=== PATIENT | female | born 1985 | race Caucasian/White ===

== ENCOUNTER → 2017-07-12 | Outpatient (CLI) | payer BC ==
--- NOTE | 2017-07-12 12:55 | RADIOLOGY REPORT (SQ) ---
EXAM DESCRIPTION: CHEST PA/LATERAL COMPLETED DATE/TIME: 07/12/2017 12:38 pm REASON FOR STUDY: COUGH COMPARISON: None. EXAM PARAMETERS: NUMBER OF VIEWS: two views TECHNIQUE: Digital Frontal and Lateral radiographic views of the chest acquired. RADIATION DOSE: NA LIMITATIONS: none FINDINGS: LUNGS AND PLEURA: No opacities, masses or pneumothorax. No pleural effusion. MEDIASTINUM AND HILAR STRUCTURES: No masses or contour abnormalities. HEART AND VASCULAR STRUCTURES: Heart normal size. No evidence for failure. BONES: Convex rightward thoracic scoliosis HARDWARE: None in the chest. OTHER: No other significant finding. IMPRESSION: NO SIGNIFICANT RADIOGRAPHIC FINDING IN THE CHEST. TECHNICAL DOCUMENTATION: JOB ID: [id number] [employer]- All Rights Reserved Reading location - IP/workstation name: [email or web address]
== END ==
LOC: OD 12:24
PROVIDERS: ATTEND Physician Assistant
DX: R05 Cough (principal)
CPT/HCPCS: 71046

== ENCOUNTER 2018-06-01 11:45 | Emergency (ER) | payer BC, OTHER ==
[2018-06-01 11:51] VITALS: BP 106/64
[2018-06-01] MEDS ORDERED: LIDOCAINE 5% (700 MG) TRANSDERMAL ADH..PATCH TP ONE (12:22)
[2018-06-01] MEDS ORDERED: ACETAMINOPHEN 325 MG TABLET PO ONE (12:22)
--- NOTE | 2018-06-01 12:23 | ER Document Report ---
HPI - HPI Patient complains to provider of: Back pain Time Seen by Provider: 06/01/18 12:16 Onset/Duration: Persistent Quality of pain: Achy Pain Level: 3 Context: Patient states she fell hitting her back on her foot board of her bed 2 days ago. Patient complains of continued left lower back tenderness. Patient denies any radiculopathy or paresthesia. Patient denies any urinary symptoms. Associated Symptoms: Other - Left lower back pain. denies: Fever Exacerbated by: Movement Relieved by: Denies Similar symptoms previously: No Recently seen / treated by doctor: No - ROS ROS below otherwise negative: Yes Systems Reviewed and Negative: Yes All other systems reviewed and negative - CONSTITUTIONAL Constitutional: DENIES: Fever - NEURO Neurology: DENIES: Weakness - GASTROINTESTINAL Gastrointestinal: DENIES: Nausea - URINARY Urinary: DENIES: Dysuria - REPRODUCTIVE Reproductive: DENIES: : - MUSCULOSKELETAL Musculoskeletal: REPORTS: Back Pain - DERM Skin Color: Normal Skin Problems: None Past Medical History - General Information source: Patient - Social History Smoking Status: Never Smoker Frequency of alcohol use: None Drug Abuse: None Occupation: None Family History: Hypertension Musculoskeletal Medical History: Reports Other - Scoliosis Past Surgical History: Reports: Hx Gynecologic Surgery - D&C, Hx Neurologic Surgery - elham holes in skull for head injury and swelling - Immunizations Immunizations up to date: Yes Hx Diphtheria, Pertussis, Tetanus Vaccination: Yes - given today Hx Pneumococcal Vaccination: 05/17/00 Vertical Provider Document - CONSTITUTIONAL Agree With Documented VS: Yes Exam Limitations: No Limitations General Appearance: WD/WN, No Apparent Distress - INFECTION CONTROL TRAVEL OUTSIDE OF THE [place] IN LAST 30 DAYS: No - HEENT HEENT: Atraumatic, Normocephalic - NECK Neck: Normal Inspection - RESPIRATORY Respiratory: Breath Sounds Normal, No Respiratory Distress - CARDIOVASCULAR Cardiovascular: Regular Rate, Regular Rhythm - GI/ABDOMEN Gastrointestinal: Abdomen Soft, Abdomen Non-Tender - BACK Back: Abnormal Inspection - Left thoracolumbar paraspinal muscle tenderness with spasm, CVA Tenderness-Left - MUSCULOSKELETAL/EXTREMETIES Musculoskeletal/Extremeties: MAEW, FROM - NEURO Level of Consciousness: Awake, Alert, Appropriate Motor/Sensory: No Motor Deficit - DERM Integumentary: Warm, Dry, No Rash Course - Re-evaluation Re-evalutation: 06/01/18 13:27 Urinalysis reviewed, no concern for infection at this time. No concern for obstructive uropathy. Will treat as musculoskeletal back pain at this time. Patient denies any abdominal tenderness nausea or vomiting. The patient presents with low back pain without signs of spinal cord compression, cauda equina syndrome, infection, aneurysm, or other serious etiology. The patient is neurologically intact. Given the extremely risk of these diagnoses further testing and evaluation for these possibilities does not appear to be indicated at this time. Patient has been instructed to return if the symptoms worsen or change in any way. - Vital Signs Vital signs: Temp Pulse Resp BP Pulse Ox 97.9 F 77 18 106/64 100 06/01/18 11:50 06/01/18 11:50 06/01/18 11:50 06/01/18 11:50 06/01/18 11:50 - Laboratory Laboratory results interpreted by me: 06/01/18 13:27 Labs- Entire Visit 06/01/18 12:25 Urine Color DARK YELLOW Urine Appearance CLEAR Urine pH 5.0 Ur Specific Hersey 1.032 Urine Protein 100 H Urine Glucose (UA) NEGATIVE Urine Ketones TRACE H Urine Blood NEGATIVE Urine Nitrite NEGATIVE Urine Bilirubin SMALL H Urine Urobilinogen 2.0 H Ur Leukocyte Esterase NEGATIVE Urine WBC (Auto) 1 Urine RBC (Auto) 3 Squamous Epi Cells Auto 6 Urine Mucus (Auto) MANY Urine Ascorbic Acid NEGATIVE Discharge - Discharge Clinical Impression: Low back pain Qualifiers: Chronicity: acute Back pain laterality: left Sciatica presence: without sciatica Qualified Code(s): M54.5 - Low back pain Condition: Stable Disposition: HOME, SELF-CARE Instructions: Ice Packs ([facility]), Low Back Pain ([facility]), Muscle Strain ([facility]), Warm Packs ([facility]) Additional Instructions: Return immediately for any new or worsening symptoms Followup with your primary care provider, call tomorrow to make a followup appointment Prescriptions: Metaxalone [Skelaxin 800 mg Tablet] 800 mg PO ASDIR PRN #15 tablet PRN Reason: Naproxen [Naprosyn 250 Nmg Tablet] 1 tab PO BID #14 tablet Referrals: KEN NUNEZ PA-C [Primary Care Provider] - Follow up as needed
[2018-06-01 12:50] LABS: APPEARANCE,URINE CLEAR; BILIRUBIN,URINE SMALL (NEGATIVE); GLUCOSE, URINE NEGATIVE (NEGATIVE); KETONES,URINE TRACE mg/dL (NEGATIVE); LEUKOCYTE ESTERASE,URINE NEGATIVE (NEGATIVE); NITRITE,URINE NEGATIVE (NEGATIVE); PROTEIN,URINE 100 mg/dL (NEGATIVE); URINE SPECIFIC GRAVITY 1.032
[2018-06-01 12:51] LABS: COLOR,URINE DARK YELLOW
== END 2018-06-01 13:52 | disposition home or self-care (01) ==
LOC: ER 11:45
DX: M54.5 Low back pain (principal); M54.9 Dorsalgia, unspecified
CPT/HCPCS: 81001; 99283

== ENCOUNTER 2019-07-30 19:17 | Emergency (ER) | payer SELFPAY ==
--- NOTE | 2019-07-30 19:49 | ER Document Report ---
HPI - HPI Patient complains to provider of: Flulike symptoms Time Seen by Provider: 07/30/19 19:47 Onset/Duration: Sudden Associated Symptoms: None Exacerbated by: Denies Relieved by: Denies - REPRODUCTIVE Reproductive: DENIES: : Past Medical History - General Information source: Patient - Social History Smoking Status: Never Smoker Cigarette use (# per day): No Chew tobacco use (# tins/day): No Smoking Education Provided: No Family History: Hypertension Renal/ Medical History: Denies: Hx Peritoneal Dialysis Past Surgical History: Reports: Hx Gynecologic Surgery - D&C, Hx Neurologic Surgery - elham holes in skull for head injury and swelling - Immunizations Immunizations up to date: Yes Hx Diphtheria, Pertussis, Tetanus Vaccination: Yes - given today Hx Pneumococcal Vaccination: 05/17/00 Vertical Provider Document - INFECTION CONTROL TRAVEL OUTSIDE OF THE [place] IN LAST 30 DAYS: No - HEENT HEENT: Atraumatic, Normocephalic, PERRLA - NECK Neck: Normal Inspection - RESPIRATORY Respiratory: Breath Sounds Normal - CARDIOVASCULAR Cardiovascular: Regular Rhythm - GI/ABDOMEN Gastrointestinal: Abdomen Soft, Abdomen Non-Tender Course - Vital Signs Vital signs: Temp Pulse Resp BP Pulse Ox 98.4 F 89 16 130/72 H 100 07/30/19 19:23 07/30/19 19:23 07/30/19 19:23 07/30/19 19:23 07/30/19 19:23 Discharge - Discharge Clinical Impression: Upper respiratory infection Condition: Good Disposition: HOME, SELF-CARE Instructions: Acetaminophen, Fever ([facility]), Upper Respiratory Illness ([facility]) Additional Instructions: Self quartentine until you are contacted by the department of health regarding the results of the coronovirus testing. Take tylenol for aches or pain. Return here for increasing shortness of breath or other concerns. Forms: Return to Work Referrals: KEN NUNEZ PA-C [Primary Care Provider] - Follow up as needed
[2019-07-30 20:18] LABS: A TYPE INFLUENZA AG NEGATIVE (NEGATIVE); B INFLUENZA AG NEGATIVE (NEGATIVE)
--- NOTE | 2019-07-30 21:00 | ER Document Report ---
Entered by MYLENE ORTA SCRIBE 07/30/192050 Acting as scribe for:MANUEL VOGEL DO ED General - General Chief Complaint: Flu Symptoms Stated Complaint: FLU SYMPTOMS Time Seen by Provider: 07/30/19 19:47 Primary Care Provider: KEN NUNEZ PA-C [Primary Care Provider] - Follow up as needed Information source: Patient Notes: 34-year-old female presents to the emergency department complaining of flu-like symptoms that began two weeks ago. Patient states that she thought it was just a sinus infection and then possible laryngitis. Patient complains of cough, muscle aches and fever. Patient states that she wants to be cleared so that she can return to work. TRAVEL OUTSIDE OF THE [place] IN LAST 30 DAYS: No - Related Data Allergies/Adverse Reactions: Penicillins Allergy (Verified 06/01/18 11:46) Past Medical History - General Information source: Patient - Social History Smoking Status: Former Smoker Cigarette use (# per day): No Chew tobacco use (# tins/day): No Occupation: Kindergarten school operations manager Family History: Hypertension Patient has suicidal ideation: No Patient has homicidal ideation: No - Medical History Medical History: Negative Past Surgical History: Reports: Hx Gynecologic Surgery - D&C, Hx Neurologic Surgery - elham holes in skull for head injury and swelling - Immunizations Immunizations up to date: Yes Hx Diphtheria, Pertussis, Tetanus Vaccination: Yes - given today Hx Pneumococcal Vaccination: 05/17/00 Review of Systems - Review of Systems Constitutional: See HPI, Fever EENT: No symptoms reported Cardiovascular: No symptoms reported Respiratory: See HPI, Cough Gastrointestinal: No symptoms reported Genitourinary: No symptoms reported Female Genitourinary: No symptoms reported Musculoskeletal: See HPI, Other - Muscle aches Skin: No symptoms reported Hematologic/Lymphatic: No symptoms reported Neurological/Psychological: No symptoms reported -: Yes All other systems reviewed and negative Physical Exam - Vital signs Vitals: Temp Pulse Resp BP Pulse Ox 98.4 F 89 16 130/72 H 100 07/30/19 19:23 07/30/19 19:23 07/30/19 19:23 07/30/19 19:23 07/30/19 19:23 - Notes Notes: Physical Exam: General: Alert, appears well. HEENT: Normocephalic. Atraumatic. PERRL. Extraocular movements intact. Erythema in pharynx. Neck: Supple. Non-tender. Respiratory: No respiratory distress. Clear and equal breath sounds bilaterally. Cardiovascular: Regular rate and rhythm. Abdominal: Normal Inspection. Non-tender. No distension. Normal Bowel Sounds. Back: No gross abnormalities. Extremities: Moves all four extremities. Upper extremities: Normal inspection. Normal ROM. Lower extremities: Normal inspection. No edema. Normal ROM. Neurological: Normal cognition. AAOx4. Normal speech. Psychological: Normal affect. Normal Mood. Skin: Warm. Dry. Normal color. Course - Re-evaluation Re-evalutation: 07/30/19 22:08 34 year old sick for about 2 weeks. Teaches kindergarden locally. Sinus congestion at first, now with some cough. Fever perhaps but no thermometer. No comorbidities. Nonsmoker. She was here to get return to work note. No travel. Feel while risk of covid is low it is not definable either. We discussed self quarentine and she expressed understanding. - Vital Signs Vital signs: Temp Pulse Resp BP Pulse Ox 98.4 F 89 16 130/72 H 100 07/30/19 19:23 07/30/19 19:23 07/30/19 19:23 07/30/19 19:23 07/30/19 19:23 Discharge - Discharge Clinical Impression: Upper respiratory infection Qualifiers: URI type: unspecified URI Qualified Code(s): J06.9 - Acute upper respiratory infection, unspecified Condition: Good Disposition: HOME, SELF-CARE Instructions: Acetaminophen, Fever ([facility]), Upper Respiratory Illness ([facility]) Additional Instructions: Self quartentine until you are contacted by the department of health regarding the results of the coronovirus testing. Take tylenol for aches or pain. Return here for increasing shortness of breath or other concerns. Referrals: KEN NUNEZ PA-C [Primary Care Provider] - Follow up as needed I personally performed the services described in the documentation, reviewed and edited the documentation which was dictated to the scribe in my presence, and it accurately records my words and actions.
[2019-07-30 22:55] VITALS: BP 110/80
== END 2019-07-30 22:51 | disposition home or self-care (01) ==
LOC: ER 19:17
DX: J06.9 Acute upper respiratory infection, unspecified (principal); Z20.828 Contact with and (suspected) exposure to other viral communicable diseases; M79.10 Myalgia, unspecified site; R50.9 Fever, unspecified; Z88.0 Allergy status to penicillin
CPT/HCPCS: 36415; 87635; 87804; 99283